=== PATIENT | male | born 1985 | race Caucasian/White ===

== ENCOUNTER 2017-11-25 11:31 | Emergency (ER) | payer OTHER ==
[2017-11-25 11:38] VITALS: BP 126/82; PULSE 63; RESP 16; TEMP 98.4; O2SAT 99
--- NOTE | 2017-11-25 12:12 | PD ---
HPI Chief Complaint: Exposure to Blood/Body Fluids Time Seen by Provider: 11:35 Travel History International Travel<30 days: No Contact w/Intl Traveler<30days: No Traveled to known affect area: No History of Present Illness HPI 32-year-old male presents emergency department with workplace exposure to blood to the left eye. Patient is working in the OR as a physician study assistant, with a splash of blood into his left eye. He flushed it thoroughly, but was sent here for evaluation for post exposure prophylaxis. The source patient has a possible history of hepatitis C. Patient otherwise is up-to-date on his immunization and has had his hepatitis B vaccine, and is a known responder. Source blood is collected and sent to the lab. Results are pending. Patient has no known drug allergies. [facility] Past Medical History Medical History: Denies Significant Hx Past Surgical History Surgical History: No Previous Surgery Social History Alcohol Use: No Tobacco Use: No Substance Use: No Allergies-Medications (Allergen,Severity, Reaction): Coded Allergies: No Known Allergies (Verified Allergy, Unknown, 11/25/17) Reported Meds & Prescriptions Reported Meds & Active Scripts Active No Active Prescriptions or Reported Medications Review of Systems Except as stated in HPI: all other systems reviewed are Neg General / Constitutional: No: Fever Eyes: No: Visual changes HENT: No: Headaches Cardiovascular: No: Chest Pain or Discomfort Respiratory: No: Shortness of Breath Gastrointestinal: No: Abdominal Pain Genitourinary: No: Dysuria Musculoskeletal: No: Pain Skin: No Rash Neurologic: No: Weakness Psychiatric: No: Depression Endocrine: No: Polydipsia Hematologic/Lymphatic: No: Easy Bruising Physical Exam Narrative GENERAL: No acute distress. SKIN: Warm and dry. Normal color. Normal turgor. HEAD: Atraumatic. Normocephalic. EYES: Pupils equal and round. No scleral icterus. No injection or drainage. ENT: No nasal bleeding or discharge. Mucous membranes pink and moist. Pharynx is clear. Airway is patent NECK: Trachea midline. Supple CARDIOVASCULAR: Regular rate and rhythm. RESPIRATORY: No accessory muscle use. Clear to auscultation. Breath sounds equal bilaterally. GASTROINTESTINAL: Abdomen soft, non-tender, nondistended. Hepatic and splenic margins not palpable. MUSCULOSKELETAL: Extremities without clubbing, cyanosis, or edema. No obvious deformities. NEUROLOGICAL: Awake and alert. No obvious cranial nerve deficits. Motor grossly within normal limits. Five out of 5 muscle strength in the arms and legs. Normal speech. PSYCHIATRIC: Appropriate mood and affect; insight and judgment normal. Data Data Last Documented VS Vital Signs Date Time Temp Pulse Resp B/P (MAP) Pulse Ox O2 Delivery O2 Flow Rate FiO2 11/25/17 11:38 98.4 63 16 126/82 (97) 99 MDM Medical Decision Making Medical Screen Exam Complete: Yes Emergency Medical Condition: Yes Differential Diagnosis Workplace accident. Accidental blood exposure. Question need for PEP. Narrative Course Patient is medically stable at time of exam. Postexposure packet is initiated, and postexposure prophylaxis is not felt to be warranted. Baseline labs are drawn. HIV consent was signed. Workers comp form completed and patient to return to work with follow-up with workers comp provider in 1 week. Diagnosis Primary Impression: Employee exposure to blood Patient Instructions: Postexposure Prophylaxis (ED) Scripts No Active Prescriptions or Reported Meds Disposition: 01 DISCHARGE HOME Condition: Stable Prem Maradiaga Nov 25, 2017 12:12
== END 2017-11-25 12:34 | disposition home or self-care (01) ==
LOC: NEPD 11:31
DX: Z77.21 Contact with and (suspected) exposure to potentially hazardous body fluids (principal)
CPT/HCPCS: 86317; 86803; 87389; 99283; G0475